=== PATIENT | male | born 2000 | race Two or more races ===

== ENCOUNTER 2023-12-31 04:31 | Emergency (ER) | payer OTHER ==
[~2023-12-31] VITALS: Ht 182.9 cm; Wt 108.9 kg
[2023-12-31] MEDS ORDERED: HYOSCYAMINE SULFATE 0.125 MG TAB.SUBL SL STA (05:04)
[2023-12-31] MEDS ORDERED: FAMOTIDINE/PF 20 MG/2 ML VIAL IV PUSH STA (05:05)
[2023-12-31] MEDS ORDERED: LACTOBACILLUS ACIDOPHILUS 1 CAP CAP PO STA (05:05)
[2023-12-31] MEDS ORDERED: PROMETHAZINE HCL 50 MG/ML AMPUL IM STA (05:05)
[2023-12-31] MEDS ORDERED: 0.9 % SODIUM CHLORIDE 1,000 ML IV ONE (05:15)
[2023-12-31 05:16] LABS: HEMATOCRIT 43.6 % (39.0-48.0); HEMOGLOBIN 15.3 g/dL (13-16.00); MEAN CELL VOLUME 87.2 fL (80.0-100.00); MEAN CORPUSCULAR HEMOGLOBIN 30.6 pg (27.00-32.0); MEAN CORPUSCULAR HGB CONC 35.1 g/dl (32.0-36.0); PLATELET COUNT 212 K/uL (150-450); RED CELL DISTRIBUTION WIDTH 13.5 % (11.5-14.5)
[2023-12-31 05:34] LABS: CALCIUM 8.4 mg/dL (8.5-10.1); CREATININE SERUM 1.22 mg/dL (0.70-1.30); GFR 73.61; POTASSIUM 4.08 mEq/L (3.5-5.1)
[2023-12-31 07:59] LABS: URINE APPEARANCE Turbid; URINE BILIRRUBIN Negative (NEGATIVE); URINE BLOOD Negative; URINE COLOR Dark Yellow; URINE GLUCOSE Negative (NEGATIVE); URINE KETONE 15 (NEGATIVE); URINE LEUKOCYTE Negative; URINE NITRATE Negative; URINE PROTEIN Negative (NEGATIVE)
[2023-12-31 08:04] LABS: URINE BACTERIA 30.2 uL (0.0-1933); URINE EPITHELIAL CELLS 4.3 uL (0.0-38.8); URINE WBC 6.9 uL (0.0-23.2)
[2023-12-31 08:17] LABS: URINE CRYSTALS MANY /HPF; URINE RBC 0.7 uL (0.0-20.8)
== END 2023-12-31 11:14 | disposition home or self-care (01) ==
LOC: ER 04:32
PROVIDERS: General Practice
DX: K52.89 Other specified noninfective gastroenteritis and colitis (principal); R11.10 Vomiting, unspecified; Z88.6 Allergy status to analgesic agent; Z91.013 Allergy to seafood